=== PATIENT | male | born 1950 | race Caucasian/White ===

== ENCOUNTER → 2018-01-17 15:06 | Outpatient (CLI) | payer MEDICARE, OTHER, SELFPAY ==
[2018-01-17 15:53] LABS: Creatinine Urine Random 97.5 mg/dL
[2018-01-17 16:27] LABS: Microalbumi Creatinin Ratio Ur 304.6 ug/mg CR (<30); Microalbumin Urine Random 29.7 mg/dL (0-1.6)
== END ==
PROVIDERS: PCP Nurse Practitioner; Visit Provider Nurse Practitioner Family
DX: I10 Essential (primary) hypertension (principal); F17.200 Nicotine dependence, unspecified, uncomplicated; E11.29 Type 2 diabetes mellitus with other diabetic kidney complication; R80.9 Proteinuria, unspecified; I73.9 Peripheral vascular disease, unspecified
CPT/HCPCS: 82043; 82570

== ENCOUNTER → 2018-11-16 12:45 | Outpatient (CLI) | payer MEDICARE, OTHER, SELFPAY ==
[2018-11-16 13:20] LABS: Hemoglobin A1C% w Est Avg Glu 6.2 % (4.0-6.0)
[2018-11-16 13:33] LABS: Blood Urea Nitrogen 33 mg/dL (9-20); Carbon Dioxide 25 mmol/L (22-32); Chloride 102 mmol/L (98-107); Cholesterol 159 mg/dL (140-199); Estimated Glomerular Filt Rate > 60.0 mL/min (>60); Glucose 67 mg/dL (80-110); HDL Cholesterol 30 mg/dL (40-60); HEMOLYSIS < 15 (0-50); LDL Cholesterol Calculated 102 mg/dL (<100); Sodium 136 mmol/L (137-145); Triglycerides 137 mg/dL (35-150)
[2018-11-16 16:05] LABS: Creatinine Urine Random 90.1 mg/dL
[2018-11-16 16:20] LABS: Vitamin D 25 Hydroxy (D3) 112 ng/mL (30.0-100.0)
[2018-11-16 16:22] LABS: Microalbumi Creatinin Ratio Ur 409.5 ug/mg CR (<30); Microalbumin Urine Random 36.9 mg/dL (0-1.6)
== END ==
PROVIDERS: PCP Student in an Organized Health Care Education/Training Program; Visit Provider Student in an Organized Health Care Education/Training Program
DX: E11.29 Type 2 diabetes mellitus with other diabetic kidney complication (principal); E55.9 Vitamin D deficiency, unspecified; E78.5 Hyperlipidemia, unspecified; I10 Essential (primary) hypertension; R80.9 Proteinuria, unspecified
CPT/HCPCS: 80048; 80061; 82043; 82306; 82570; 83036

== ENCOUNTER → 2019-05-17 14:43 | Outpatient (CLI) | payer MEDICARE, OTHER, SELFPAY ==
--- NOTE | 2019-05-17 14:46 | DI.RAD.S_ITS ---
PROCEDURE: XR CHEST 2V INDICATIONS: cough; h/o rib fracture on right TECHNIQUE: 2 views of the chest were acquired. COMPARISON: [facility], , CHEST 2 VIEW, 08/19/2010, 16:26. FINDINGS: Surgical changes and devices: Midline sternotomy wires are noted. Mediastinal surgical clips are present. Lungs and pleura: Hazy rounded opacities projecting over the lateral mid right lung zamora are noted. No pleural effusions or pneumothorax. Mediastinum: Mediastinal contours are normal. Heart size is normal. Bones and chest wall: There is a chronic-appearing fracture of the distal right clavicle with fragmentation and acromioclavicular joint separation. Moderate multilevel degenerative changes of the thoracic spine. IMPRESSION: Hazy rounded opacities projecting over the lateral mid right lung zamora are noted, and are most consistent with age-indeterminate right rib fractures or superimposition artifact of multiple rib shadows. However, underlying pulmonary opacities/pneumonia could appear similar. Consider followup radiographs if there is continued clinical concern. Dictated by: Brant Shrestha M.D. on 05/17/2019 at 17:23 Approved by: Brant Shrestha M.D. on 05/17/2019 at 17:29
[2019-05-17 16:10] LABS: Microalbumi Creatinin Ratio Ur 587.5 ug/mg CR (<30); Microalbumin Urine Random 84.6 mg/dL (0-1.6)
[2019-05-17 16:33] LABS: Hemoglobin A1C% w Est Avg Glu 5.9 % (4.0-6.0)
[2019-05-17 16:40] LABS: BUN Creatinine Ratio 21.1 (6-22); Blood Urea Nitrogen 19 mg/dL (9-20); Calcium 9.4 mg/dL (8.4-10.2); Carbon Dioxide 21 mmol/L (22-32); Chloride 102 mmol/L (98-107); Estimated Glomerular Filt Rate > 60.0 mL/min (>60); Glucose 80 mg/dL (80-110); HEMOLYSIS < 15 (0-50); Potassium 4.9 mmol/L (3.4-5.1); Sodium 136 mmol/L (137-145)
== END ==
PROVIDERS: PCP Student in an Organized Health Care Education/Training Program; Visit Provider Student in an Organized Health Care Education/Training Program
DX: R05 Cough (principal); E11.29 Type 2 diabetes mellitus with other diabetic kidney complication; R80.9 Proteinuria, unspecified; Z79.4 Long term (current) use of insulin
CPT/HCPCS: 36415; 71046; 80048; 82043; 82570; 83036

== ENCOUNTER → 2020-05-29 09:54 | Outpatient (CLI) | payer MEDICARE, OTHER, SELFPAY ==
[2020-05-29 11:17] LABS: Add Manual Diff / Slide Review NO; Basophils Absolute Auto 0 /uL (0-100); Basophils Percent Auto 0.7 % (0-2); Eosinophils Absolute Auto 100 /uL (0-450); Eosinophils Percent Auto 2.5 % (2-4); Hematocrit 28.8 % (41-53); Hemoglobin 9.5 g/dL (13.5-17.5); Lymphocytes Absolute Auto 1000 /uL (1100-4500); Lymphocytes Percent Auto 19.5 % (25-40); Mean Corpuscular HGB Conc 32.8 % (30-36); Mean Corpuscular Volume 88.5 fL (80-100); Monocytes Absolute Auto 500 /uL (0-900); Monocytes Percent Auto 9.5 % (3-14); Neutrophils Absolute Auto 3500 /uL (1500-7000); Neutrophils Percent Auto 67.8 % (50-75); Platelet Count 278 X10^3/uL (150-400); Red Blood Cell Count 3.26 X10^6/uL (4.5-5.9); Red Cell Distribution Width 15.5 % (11.6-14.8); White Blood Cell Count 5.1 X10^3/uL (4.5-11.0)
[2020-05-29 11:24] LABS: Reticulocyte Count, Percent 1.3 % (0.87-2.60)
[2020-05-29 11:57] LABS: HEMOLYSIS < 15 (0-50); Iron 86 ug/dL (49-181)
[2020-05-29 11:59] LABS: BUN Creatinine Ratio 21.6 (6-22); Blood Urea Nitrogen 19 mg/dL (9-20); Calcium 8.8 mg/dL (8.4-10.2); Carbon Dioxide 25 mmol/L (22-32); Chloride 110 mmol/L (98-107); Estimated Glomerular Filt Rate > 60.0 mL/min (>60); Glucose 136 mg/dL (80-110); HEMOLYSIS < 15 (0-50); Sodium 138 mmol/L (137-145)
[2020-05-29 12:00] LABS: Creatinine Urine Random 105.5 mg/dL
[2020-05-29 12:08] LABS: Percent Iron Saturation 28 % (20-50); Total Iron Binding Capacity 307 ug/dL (261-462); Transferrin 222 mg/dL (206-381)
[2020-05-29 12:14] LABS: Vitamin D 25 Hydroxy (D3) 48.9 ng/mL (30.0-100.0)
[2020-05-29 12:17] LABS: Microalbumin Urine Random 113.1 mg/dL (0-1.6)
[2020-05-29 12:31] LABS: Ferritin 56 ng/mL (18-464)
== END ==
PROVIDERS: PCP Student in an Organized Health Care Education/Training Program; Referring Provider Student in an Organized Health Care Education/Training Program; Visit Provider Student in an Organized Health Care Education/Training Program
DX: D50.9 Iron deficiency anemia, unspecified (principal); E11.29 Type 2 diabetes mellitus with other diabetic kidney complication; R80.9 Proteinuria, unspecified; Z79.4 Long term (current) use of insulin; T45.2X1A Poisoning by vitamins, accidental (unintentional), initial encounter; E11.21 Type 2 diabetes mellitus with diabetic nephropathy
CPT/HCPCS: 36415; 80048; 82043; 82306; 82570; 82728; 83036; 83540; 83550; 85025; 85045

== ENCOUNTER → 2020-06-07 10:29 | Outpatient (CLI) | payer MEDICARE, OTHER, SELFPAY ==
[2020-06-07 12:17] LABS: Lactate Dehydrogenase 496 U/L (313-618)
[2020-06-07 13:24] LABS: Folate 7.3 ng/mL (2.76-20.0); Vitamin B12 590 pg/mL (239-931)
[2020-06-08 21:19] LABS: Erythropoietin 26.1 mIU/mL (2.6-18.5)
== END ==
PROVIDERS: PCP Student in an Organized Health Care Education/Training Program; Referring Provider Student in an Organized Health Care Education/Training Program; Visit Provider Student in an Organized Health Care Education/Training Program
DX: D64.9 Anemia, unspecified (principal)
CPT/HCPCS: 36415; 82607; 82668; 82746; 83615; 86880

== ENCOUNTER → 2020-07-08 13:02 | Oncology outpatient (ONC) | payer MEDICARE, OTHER, SELFPAY ==
[2020-07-08 11:46] VITALS: BP 140/67; PULSE 87; RESP 16; TEMP 37; O2SAT 100
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
[2020-07-08 13:17] LABS: Add Manual Diff / Slide Review NO; Basophils Absolute Auto 0 /uL (0-100); Basophils Percent Auto 0.6 % (0-2); Eosinophils Absolute Auto 100 /uL (0-450); Eosinophils Percent Auto 2.3 % (2-4); Hematocrit 27.9 % (41-53); Hemoglobin 9.2 g/dL (13.5-17.5); Lymphocytes Absolute Auto 1200 /uL (1100-4500); Lymphocytes Percent Auto 21.1 % (25-40); Mean Corpuscular Hemoglobin 28.7 PG (26-34); Mean Corpuscular Volume 87.1 fL (80-100); Monocytes Absolute Auto 600 /uL (0-900); Monocytes Percent Auto 11.1 % (3-14); Neutrophils Absolute Auto 3700 /uL (1500-7000); Neutrophils Percent Auto 64.9 % (50-75); Platelet Count 299 X10^3/uL (150-400); Red Cell Distribution Width 15.6 % (11.6-14.8); White Blood Cell Count 5.6 X10^3/uL (4.5-11.0)
[2020-07-08 13:29] LABS: Alanine Aminotransferase 50 IU/L (<50); Albumin 3.3 g/dL (3.5-5.0); Albumin Globulin Ratio 0.9 (1.0-2.8); Alkaline Phosphatase 143 U/L (38-126); Aspartate Aminotransferase 54 IU/L (17-59); BUN Creatinine Ratio 21.9 (6-22); Bilirubin Total 0.3 mg/dL (0.2-1.3); Blood Urea Nitrogen 21 mg/dL (9-20); Calcium 8.7 mg/dL (8.4-10.2); Carbon Dioxide 25 mmol/L (22-32); Chloride 109 mmol/L (98-107); Estimated Glomerular Filt Rate > 60.0 mL/min (>60); Globulin 3.7 g/dL (1.7-4.1); Glucose 129 mg/dL (80-110); HEMOLYSIS < 15 (0-50); Potassium 4.3 mmol/L (3.4-5.1); Sodium 135 mmol/L (137-145)
[2020-07-08 13:39] LABS: HEMOLYSIS < 15 (0-50); Iron 25 ug/dL (49-181)
[2020-07-08 13:49] LABS: Percent Iron Saturation 8 % (20-50); Total Iron Binding Capacity 328 ug/dL (261-462); Transferrin 244 mg/dL (206-381)
[2020-07-08 14:03] LABS: Ferritin 33 ng/mL (18-464)
== END ==
PROVIDERS: PCP Student in an Organized Health Care Education/Training Program; Referring Provider Student in an Organized Health Care Education/Training Program; Visit Provider Internal Medicine
DX: D50.9 Iron deficiency anemia, unspecified (principal); I25.2 Old myocardial infarction; E78.5 Hyperlipidemia, unspecified; E11.9 Type 2 diabetes mellitus without complications; I10 Essential (primary) hypertension; I49.9 Cardiac arrhythmia, unspecified; Z95.1 Presence of aortocoronary bypass graft; Z87.891 Personal history of nicotine dependence; Z85.46 Personal history of malignant neoplasm of prostate; Z79.84 Long term (current) use of oral hypoglycemic drugs
CPT/HCPCS: 36415; 80053; 82728; 83540; 83550; 85025; 99203; 99213